=== PATIENT | female | born 1935 | race African-American/Black ===

== ENCOUNTER 2017-02-05 12:02 | Inpatient (IN) | payer OTHER ==
[~2017-02-05] VITALS: Ht 167.6 cm; Wt 106.1 kg
[~2017-02-05 12:02] MED LIST: AMARYL4 MG PO; AMLODIPINE BESY10 M1 PO; BISCOLAX5 MG PO; CARVEDILOL6.25 M1 PO; CLONIDINE HCL0.2 MG PO; COLACE100 MG PO; FLUTICASON0.05 MG/Ac; HCTZ/LISINOPRIL1 TA2 PO; HYDROCHLOROTHIA25 MG PO; LOSARTAN POTASS25 M1 PO; MOTRIN800 MG PO; NAPROSYN250 MG PO; OLANZAPINE10 MG PO; ONGLYZA5 M1 PO; SEROQUEL25 MG PO; SIMVASTATIN40 M1 PO
[2017-02-05 12:43] LABS: PLATELET COUNT 245 x10^3mcL (130-400); RED CELL DISTRIBUTION WIDTH 15.6 % (11.5-14.5)
[2017-02-05 12:44] LABS: CALCIUM 9.6 mg/dL (8.5-10.1); CHLORIDE SERUM 105 mmol/L (98-107); CREATININE SERUM 1.4 mg/dL (0.6-1.0); GLUCOSE SERUM 155 mg/dL (74-106); POTASSIUM SERUM 4.3 mmol/L (3.5-5.1); SODIUM SERUM 139 mmol/L (136-145)
[2017-02-05 12:47] LABS: BAND NEUTROPHIL 1 % (0-10); BASOPHIL 0 % (0-2); MONOCYTE 6 % (0-7); SEGMENTED NEUTROPHILS 65 % (37-75)
[2017-02-05 12:49] LABS: ALBUMIN 3.8 g/dL (3.4-5.0); ALKALINE PHOSPHATASE 58 U/L (46-116); ALT/SGPT 8 U/L (14-59); AST/SGOT 19 U/L (15-37); BILIRUBIN TOTAL 0.61 mg/dL (0.20-1.00); PLATELET MORPHOLOGY PLATELETS NORMAL; TOTAL PROTEIN, SERUM 7.9 g/dL (6.4-8.2); rbc morphology (normal/abnorm) ABNORMAL (NORMAL)
[2017-02-05 15:20] LABS: CHOLESTEROL/HDL RATIO 3.9
[2017-02-05 15:25] LABS: T3 TOTAL 0.71 ng/mL
[2017-02-05 15:29] LABS: FREE THYROXINE INDEX 2.3 ug/dL (1.4-4.5); T4(THYROXINE) 6.9 ug/dL (4.7-13.3)
[2017-02-05 15:51] VITALS: BP 193/101
[2017-02-05 16:18] VITALS: BP 169/88
[2017-02-05 17:16] VITALS: BP 180/78
[2017-02-05 17:22] LABS: microscopic required? NO
[2017-02-05 17:31] LABS: urine erythrocyte NEGATIVE (NEGATIVE)
[2017-02-05 19:14] VITALS: BP 136/67
[2017-02-05 21:44] VITALS: BP 128/63
[2017-02-06 07:01] VITALS: BP 163/77
[2017-02-06 07:09] LABS: BASOPHIL % 0.5 % (0-2); PLATELET COUNT 234 x10^3mcL (130-400)
[2017-02-06 07:14] LABS: RED CELL DISTRIBUTION WIDTH 15.4 % (11.5-14.5)
[2017-02-06 07:16] LABS: CALCIUM 9.5 mg/dL (8.5-10.1); CHLORIDE SERUM 107 mmol/L (98-107); CREATININE SERUM 1.1 mg/dL (0.6-1.0); GLUCOSE SERUM 130 mg/dL (74-106); MAGNESIUM 2.4 mg/dL (1.8-2.4); PHOSPHOROUS 3.2 mg/dL (2.5-4.9); POTASSIUM SERUM 4.6 mmol/L (3.5-5.1); SODIUM SERUM 145 mmol/L (136-145)
[2017-02-06 09:30] VITALS: BP 122/70
[2017-02-06 13:35] VITALS: BP 155/74
[2017-02-06 18:00] VITALS: BP 155/81
[2017-02-07 01:47] VITALS: BP 151/52
[2017-02-07 06:13] LABS: BASOPHIL % 0.5 % (0-2); PLATELET COUNT 240 x10^3mcL (130-400)
[2017-02-07 06:35] LABS: CALCIUM 9.7 mg/dL (8.5-10.1); CARBON DIOXIDE 27.4 mmol/L (21-32); CHLORIDE SERUM 109 mmol/L (98-107); CREATININE SERUM 1.1 mg/dL (0.6-1.0); GLUCOSE SERUM 147 mg/dL (74-106); MAGNESIUM 2.3 mg/dL (1.8-2.4); PHOSPHOROUS 3.3 mg/dL (2.5-4.9); POTASSIUM SERUM 4.3 mmol/L (3.5-5.1); SODIUM SERUM 141 mmol/L (136-145)
[2017-02-07 06:36] LABS: RED CELL DISTRIBUTION WIDTH 15.9 % (11.5-14.5)
[2017-02-07 08:25] VITALS: BP 178/75
[2017-02-07 11:06] VITALS: BP 158/67
[2017-02-07 14:07] VITALS: BP 166/69
[2017-02-07 19:30] VITALS: BP 169/71
[2017-02-08 05:50] VITALS: BP 154/82
[2017-02-08 05:57] LABS: BASOPHIL % 0.3 % (0-2); PLATELET COUNT 229 x10^3mcL (130-400)
[2017-02-08 06:17] LABS: CALCIUM 9.6 mg/dL (8.5-10.1); CARBON DIOXIDE 26.8 mmol/L (21-32); CHLORIDE SERUM 109 mmol/L (98-107); GLUCOSE SERUM 124 mg/dL (74-106); MAGNESIUM 2.1 mg/dL (1.8-2.4); PHOSPHOROUS 3.4 mg/dL (2.5-4.9); POTASSIUM SERUM 4.2 mmol/L (3.5-5.1); SODIUM SERUM 143 mmol/L (136-145)
[2017-02-08 06:34] LABS: RED CELL DISTRIBUTION WIDTH 15.5 % (11.5-14.5)
[2017-02-08 10:42] VITALS: BP 160/71
[2017-02-08] MEDS ORDERED: GLU500 PO (14:07)
[2017-02-08 14:09] VITALS: BP 145/67; BP 145/76
[2017-02-08] MEDS ORDERED: ECO81 PO (14:10)
[2017-02-08 14:32] VITALS: BP 145/76
[2017-02-08] MEDS ORDERED: COZ50 PO (15:12)
[2017-02-08] MEDS ORDERED: NOR10 PO (16:13)
[2017-02-08] MEDS ORDERED: SEROQUEL25 MG PO (16:21)
== END 2017-02-08 17:25 | disposition home health service (06) | DRG 640 ==
LOC: ED 12:02 → DU 13:33 → MU 02-08 07:00
PROVIDERS: Emergency Medicine; Family Medicine; ADMIT Family Medicine
DX: E86.0 Dehydration (principal); N17.0 Acute kidney failure with tubular necrosis; D68.69 Other thrombophilia; E11.65 Type 2 diabetes mellitus with hyperglycemia; I16.0 Hypertensive urgency; E78.5 Hyperlipidemia, unspecified; E02 Subclinical iodine-deficiency hypothyroidism; D64.9 Anemia, unspecified; M19.90 Unspecified osteoarthritis, unspecified site; Z68.37 Body mass index [BMI] 37.0-37.9, adult
CPT/HCPCS: 82962; 83880; 84439; 97110-GP; 97116-GP; 97530-GP; J3490; J7030; J7040; Q0092

== ENCOUNTER 2017-03-17 11:53 | Emergency (ER) | payer OTHER ==
[~2017-03-17 11:53] MED LIST changes: +COZ50 PO; +ECO81 PO; +GLU500 PO; +NOR10 PO
[2017-03-17 12:51] LABS: BASOPHIL % 0.3 % (0-2); PLATELET COUNT 288 x10^3mcL (130-400)
[2017-03-17 12:54] LABS: RED CELL DISTRIBUTION WIDTH 15.8 % (11.5-14.5)
[2017-03-17 12:58] LABS: CALCIUM 9.5 mg/dL (8.5-10.1); CARBON DIOXIDE 26.8 mmol/L (21-32); CHLORIDE SERUM 107 mmol/L (98-107); CREATININE SERUM 1.6 mg/dL (0.6-1.0); GLUCOSE SERUM 145 mg/dL (74-106); POTASSIUM SERUM 4.1 mmol/L (3.5-5.1); SODIUM SERUM 143 mmol/L (136-145)
[2017-03-17 13:03] LABS: ALBUMIN 3.6 g/dL (3.4-5.0); ALKALINE PHOSPHATASE 60 U/L (46-116); ALT/SGPT 13 U/L (14-59); AST/SGOT 15 U/L (15-37); BILIRUBIN TOTAL 0.6 mg/dL (0.20-1.00); MAGNESIUM 2.2 mg/dL (1.8-2.4); TOTAL PROTEIN, SERUM 7.3 g/dL (6.4-8.2)
[2017-03-17 13:41] VITALS: BP 127/63
== END 2017-03-17 14:06 | disposition home or self-care (01) ==
LOC: ED 11:53
PROVIDERS: Emergency Medicine
DX: E86.0 Dehydration (principal); I10 Essential (primary) hypertension; D64.9 Anemia, unspecified; E11.9 Type 2 diabetes mellitus without complications; E78.5 Hyperlipidemia, unspecified; Z91.013 Allergy to seafood; Z88.5 Allergy status to narcotic agent; Z88.8 Allergy status to other drugs, medicaments and biological substances
CPT/HCPCS: J7030; Q0092

== ENCOUNTER 2017-06-14 12:22 | Inpatient (IN) | payer OTHER ==
[~2017-06-14] VITALS: Ht 165.1 cm; Wt 99.0 kg
[2017-06-14 13:17] LABS: BASOPHIL % 0.3 % (0-2); PLATELET COUNT 353 x10^3mcL (130-400)
[2017-06-14 13:18] LABS: RED CELL DISTRIBUTION WIDTH 14.9 % (11.5-14.5)
[2017-06-14 13:39] LABS: ALBUMIN 3.8 g/dL (3.4-5.0); ALKALINE PHOSPHATASE 62 U/L (46-116); ALT/SGPT 18 U/L (14-59); AST/SGOT 28 U/L (15-37); BILIRUBIN TOTAL 0.8 mg/dL (0.20-1.00); CALCIUM 9.2 mg/dL (8.5-10.1); CARBON DIOXIDE 25.1 mmol/L (21-32); CHLORIDE SERUM 85 mmol/L (98-107); CREATININE SERUM 1.2 mg/dL (0.6-1.0); GLUCOSE SERUM 209 mg/dL (74-106); POTASSIUM SERUM 4.3 mmol/L (3.5-5.1); TOTAL PROTEIN, SERUM 7.2 g/dL (6.4-8.2)
[2017-06-14 13:52] LABS: SODIUM SERUM 120 mmol/L (136-145)
[2017-06-14 15:24] VITALS: BP 157/90
[2017-06-14 15:29] LABS: MAGNESIUM 1.8 mg/dL (1.8-2.4); PHOSPHOROUS 3.1 mg/dL (2.5-4.9)
[2017-06-14 15:31] LABS: CHOLESTEROL/HDL RATIO 2.9
[2017-06-14 15:33] LABS: T3 TOTAL 0.86 ng/mL
[2017-06-14 15:34] LABS: FREE T4 1.22 ng/dL (0.76-1.46); FREE THYROXINE INDEX 3.3 ug/dL (1.4-4.5); T4(THYROXINE) 9.5 ug/dL (4.7-13.3)
[2017-06-14 21:24] VITALS: BP 102/80
[2017-06-14 22:00] LABS: microscopic required? NO
[2017-06-14 22:07] LABS: urine erythrocyte NEGATIVE (NEGATIVE)
[2017-06-15 05:59] VITALS: BP 155/67
[2017-06-15 09:32] VITALS: BP 106/45
[2017-06-15 13:05] LABS: CALCIUM 8.5 mg/dL (8.5-10.1); CARBON DIOXIDE 25.4 mmol/L (21-32); CHLORIDE SERUM 94 mmol/L (98-107); CREATININE SERUM 1.1 mg/dL (0.6-1.0); GLUCOSE SERUM 126 mg/dL (74-106); POTASSIUM SERUM 4.3 mmol/L (3.5-5.1); SODIUM SERUM 125 mmol/L (136-145)
[2017-06-15 13:06] LABS: BASOPHIL % 0.5 % (0-2); PLATELET COUNT 281 x10^3mcL (130-400)
[2017-06-15 13:11] LABS: RED CELL DISTRIBUTION WIDTH 14.9 % (11.5-14.5)
[2017-06-15 14:10] VITALS: BP 101/56
[2017-06-15 14:15] VITALS: Ht 165.1 cm; Wt 99.0 kg
[2017-06-15 17:24] VITALS: BP 108/57
[2017-06-15 17:34] LABS: RED BLOOD CELLS 2.56 M/mm3 (4.10-5.10)
[2017-06-15 17:39] LABS: IRON 30 ug/dL (50-170); TOTAL IRON BINDING CAPACITY 218 ug/dL (250-450)
[2017-06-15 20:58] VITALS: BP 140/53
[2017-06-16 05:40] VITALS: BP 100/49
[2017-06-16 06:47] LABS: CALCIUM 8.6 mg/dL (8.5-10.1); CHLORIDE SERUM 99 mmol/L (98-107); GLUCOSE SERUM 116 mg/dL (74-106); SODIUM SERUM 130 mmol/L (136-145)
[2017-06-16 10:15] VITALS: BP 141/67
[2017-06-16 14:38] VITALS: BP 134/65
[2017-06-16 17:23] VITALS: BP 143/62
[2017-06-16 21:37] VITALS: BP 139/56
[2017-06-17] VITALS (9 sets, daily range): BP systolic 124–186; BP diastolic 63–75
[2017-06-17 07:33] LABS: BASOPHIL % 0.2 % (0-2); CALCIUM 8.8 mg/dL (8.5-10.1); CHLORIDE SERUM 101 mmol/L (98-107); GLUCOSE SERUM 121 mg/dL (74-106); PLATELET COUNT 324 x10^3mcL (130-400); SODIUM SERUM 135 mmol/L (136-145)
[2017-06-17 07:44] LABS: RED CELL DISTRIBUTION WIDTH 15.1 % (11.5-14.5)
[2017-06-18 05:30] VITALS: BP 155/59
[2017-06-18 07:16] LABS: CALCIUM 8.7 mg/dL (8.5-10.1); CARBON DIOXIDE 23.6 mmol/L (21-32); CHLORIDE SERUM 103 mmol/L (98-107); GLUCOSE SERUM 126 mg/dL (74-106); POTASSIUM SERUM 4.2 mmol/L (3.5-5.1); SODIUM SERUM 136 mmol/L (136-145)
[2017-06-18 08:40] LABS: BASOPHIL % 0.3 % (0-2); PLATELET COUNT 340 x10^3mcL (130-400); RED CELL DISTRIBUTION WIDTH 15.3 % (11.5-14.5)
[2017-06-18 09:00] VITALS: BP 151/65
[2017-06-18 10:00] VITALS: BP 135/69
[2017-06-18 12:09] VITALS: BP 150/64
[2017-06-18 18:20] VITALS: BP 110/54
[2017-06-18 20:50] VITALS: BP 124/52
[2017-06-19 05:42] VITALS: BP 124/44
[2017-06-19 08:00] VITALS: BP 121/52
[2017-06-19 10:30] LABS: BASOPHIL % 0.3 % (0-2); PLATELET COUNT 397 x10^3mcL (130-400); RED CELL DISTRIBUTION WIDTH 15.4 % (11.5-14.5)
[2017-06-19 10:42] LABS: CALCIUM 8.8 mg/dL (8.5-10.1); CARBON DIOXIDE 27.3 mmol/L (21-32); CHLORIDE SERUM 106 mmol/L (98-107); GLUCOSE SERUM 153 mg/dL (74-106); MAGNESIUM 1.9 mg/dL (1.8-2.4); PHOSPHOROUS 2.5 mg/dL (2.5-4.9); POTASSIUM SERUM 4.2 mmol/L (3.5-5.1); SODIUM SERUM 139 mmol/L (136-145)
[2017-06-19 11:00] LABS: rbc morphology (normal/abnorm) ABNORMAL (NORMAL)
[2017-06-19 18:15] VITALS: BP 127/61
[2017-06-19 20:43] VITALS: BP 130/48
[2017-06-20 05:56] VITALS: BP 160/63
[2017-06-20 06:46] LABS: CALCIUM 8.8 mg/dL (8.5-10.1); CARBON DIOXIDE 26.9 mmol/L (21-32); CHLORIDE SERUM 106 mmol/L (98-107); CREATININE SERUM 0.9 mg/dL (0.6-1.0); GLUCOSE SERUM 132 mg/dL (74-106); POTASSIUM SERUM 4.1 mmol/L (3.5-5.1); SODIUM SERUM 138 mmol/L (136-145)
[2017-06-20 06:48] LABS: ALBUMIN 2.2 g/dL (3.4-5.0)
[2017-06-20 07:10] VITALS: BP 143/63
[2017-06-20 07:12] LABS: BASOPHIL % 0.2 % (0-2); PLATELET COUNT 375 x10^3mcL (130-400)
[2017-06-20 07:43] LABS: rbc morphology (normal/abnorm) ABNORMAL (NORMAL)
[2017-06-20 07:44] LABS: schistocyte (helmet cell) 1+
[2017-06-20 18:00] VITALS: BP 170/64
[2017-06-20 21:18] VITALS: BP 184/70
[2017-06-20 22:23] VITALS: BP 157/75
[2017-06-21 06:08] VITALS: BP 166/68
[2017-06-21 06:21] LABS: CALCIUM 8.9 mg/dL (8.5-10.1); CARBON DIOXIDE 24.9 mmol/L (21-32); CHLORIDE SERUM 106 mmol/L (98-107); CREATININE SERUM 0.8 mg/dL (0.6-1.0); GLUCOSE SERUM 144 mg/dL (74-106); SODIUM SERUM 139 mmol/L (136-145)
[2017-06-21 07:22] LABS: BASOPHIL % 0 % (0-2); PLATELET COUNT 437 x10^3mcL (130-400); RED CELL DISTRIBUTION WIDTH 15.2 % (11.5-14.5)
[2017-06-21 07:27] LABS: rbc morphology (normal/abnorm) ABNORMAL (NORMAL)
[2017-06-21 07:29] LABS: schistocyte (helmet cell) 1+
[2017-06-21 10:12] VITALS: BP 162/67
[2017-06-21 13:21] VITALS: BP 162/67
[2017-06-21 17:43] VITALS: BP 146/63
== END 2017-06-21 20:20 | DRG 481 ==
LOC: ED 12:22 → DU 14:27 → MU 14:27 → DU 15:08 → MU 06-18 06:36
PROVIDERS: Emergency Medicine; Family Medicine; Neuromusculoskeletal Medicine, Sports Medicine; ADMIT Family Medicine
PROC: 0QS804Z Reposition Right Femoral Shaft with Internal Fixation Device, Open Approach (ICD-10-PCS; principal; 2017-06-17 11:00)
DX: S72.341A Displaced spiral fracture of shaft of right femur, initial encounter for closed fracture (principal); E87.1 Hypo-osmolality and hyponatremia; D68.69 Other thrombophilia; E11.65 Type 2 diabetes mellitus with hyperglycemia; M17.11 Unilateral primary osteoarthritis, right knee; M16.11 Unilateral primary osteoarthritis, right hip; D64.9 Anemia, unspecified; E78.00 Pure hypercholesterolemia, unspecified; E87.8 Other disorders of electrolyte and fluid balance, not elsewhere classified; E02 Subclinical iodine-deficiency hypothyroidism; W17.89XA Other fall from one level to another, initial encounter; Y93.89 Activity, other specified; Z79.82 Long term (current) use of aspirin; Z68.36 Body mass index [BMI] 36.0-36.9, adult; Y92.013 Bedroom of single-family (private) house as the place of occurrence of the external cause
CPT/HCPCS: 82962; 83880; 84439; 97110-GP; 97530-GP; C1713; J0690; J1644; J1815; J2270; J2405; J2704; J2916; J3010; J3490; J7030; J7040

== ENCOUNTER 2019-01-22 12:18 | Emergency (ER) | payer OTHER ==
[~2019-01-22] VITALS: Ht 167.6 cm; Wt 72.6 kg
[2019-01-22 12:30] VITALS: Ht 167.6 cm; Wt 72.6 kg
[2019-01-22 13:29] LABS: BASOPHIL % 0.3 % (0-2); PLATELET COUNT 240 x10^3mcL (130-400)
[2019-01-22 13:31] LABS: CALCIUM 9.2 mg/dL (8.5-10.1); CARBON DIOXIDE 28.4 mmol/L (21-32); CHLORIDE SERUM 103 mmol/L (98-107); CREATININE SERUM 1.2 mg/dL (0.6-1.0); GLUCOSE SERUM 123 mg/dL (74-106); POTASSIUM SERUM 4.5 mmol/L (3.5-5.1); SODIUM SERUM 137 mmol/L (136-145)
[2019-01-22 13:34] LABS: RED CELL DISTRIBUTION WIDTH 15.8 % (11.5-14.5)
[2019-01-22 13:36] LABS: ALKALINE PHOSPHATASE 60 U/L (46-116); ALT/SGPT 37 U/L (14-59); AST/SGOT 34 U/L (15-37); BILIRUBIN TOTAL 0.54 mg/dL (0.20-1.00)
[2019-01-22 13:37] LABS: ALBUMIN 3.2 g/dL (3.4-5.0)
[2019-01-22 14:26] LABS: UA SPECIFIC GRAVITY 1.015 (1.005-1.035); microscopic required? YES
[2019-01-22 14:28] LABS: urine erythrocyte 1+ (NEGATIVE)
[2019-01-22 18:12] VITALS: BP 124/57
== END 2019-01-22 18:12 | disposition home or self-care (01) ==
LOC: ED 12:18
PROVIDERS: Emergency Medicine
DX: N39.0 Urinary tract infection, site not specified (principal); E86.0 Dehydration; I10 Essential (primary) hypertension; Z91.013 Allergy to seafood; Z88.5 Allergy status to narcotic agent; Z91.041 Radiographic dye allergy status
CPT/HCPCS: J0696; J7030

== ENCOUNTER 2019-07-24 14:49 | Emergency (ER) | payer OTHER ==
[~2019-07-24] VITALS: Ht 170.2 cm; Wt 86.2 kg
[2019-07-24 17:04] LABS: PLATELET COUNT 343 x10^3mcL (130-400); RED CELL DISTRIBUTION WIDTH 14.1 % (11.5-14.5)
[2019-07-24 17:33] LABS: BAND NEUTROPHIL 0 % (0-10); BASOPHIL 0 % (0-2); MONOCYTE 7 % (0-7); SEGMENTED NEUTROPHILS 69 % (37-75)
[2019-07-24 17:34] LABS: PLATELET MORPHOLOGY PLATELETS NORMAL; rbc morphology (normal/abnorm) NORMAL (NORMAL)
[2019-07-24 17:34] LABS: CALCIUM 9.5 mg/dL (8.5-10.1); CARBON DIOXIDE 26.2 mmol/L (21-32); CHLORIDE SERUM 102 mmol/L (98-107); CREATININE SERUM 1.3 mg/dL (0.6-1.0); GLUCOSE SERUM 120 mg/dL (74-106); POTASSIUM SERUM 4.4 mmol/L (3.5-5.1); SODIUM SERUM 140 mmol/L (136-145)
[2019-07-24 17:39] LABS: ALBUMIN 3.8 g/dL (3.4-5.0); ALKALINE PHOSPHATASE 43 U/L (46-116); ALT/SGPT 22 U/L (14-59); AST/SGOT 23 U/L (15-37); BILIRUBIN TOTAL 0.45 mg/dL (0.20-1.00); LIPASE 60 IU/L (73-393); TOTAL PROTEIN, SERUM 8.5 g/dL (6.4-8.2)
[2019-07-24 18:18] VITALS: BP 110/61
== END 2019-07-24 18:36 | disposition home or self-care (01) ==
LOC: ED 14:49
PROVIDERS: Emergency Medicine
DX: K59.00 Constipation, unspecified (principal); I10 Essential (primary) hypertension; Z88.8 Allergy status to other drugs, medicaments and biological substances; Z88.5 Allergy status to narcotic agent; Z91.013 Allergy to seafood
CPT/HCPCS: 36415

== ENCOUNTER 2019-10-18 16:53 | Emergency (ER) | payer OTHER ==
[~2019-10-18] VITALS: Ht 167.6 cm; Wt 79.4 kg
[2019-10-18 17:04] VITALS: Ht 167.6 cm; Wt 79.4 kg
[2019-10-18 18:06] LABS: BASOPHIL % 0.9 % (0-2)
[2019-10-18 18:07] LABS: PLATELET COUNT 429 x10^3mcL (130-400); RED CELL DISTRIBUTION WIDTH 16.4 % (11.5-14.5)
[2019-10-18 18:20] LABS: CALCIUM 8.9 mg/dL (8.5-10.1); CARBON DIOXIDE 25.8 mmol/L (21-32); CHLORIDE SERUM 99 mmol/L (98-107); CREATININE SERUM 1.4 mg/dL (0.6-1.0); GLUCOSE SERUM 169 mg/dL (74-106); POTASSIUM SERUM 4.4 mmol/L (3.5-5.1); SODIUM SERUM 134 mmol/L (136-145)
[2019-10-18 18:25] LABS: ALBUMIN 2.9 g/dL (3.4-5.0); ALKALINE PHOSPHATASE 63 U/L (46-116); ALT/SGPT 26 U/L (14-59); AST/SGOT 20 U/L (15-37); BILIRUBIN TOTAL 0.54 mg/dL (0.20-1.00); TOTAL PROTEIN, SERUM 8.1 g/dL (6.4-8.2)
[2019-10-18 19:45] LABS: microscopic required? YES; urine erythrocyte 2+ (NEGATIVE)
[2019-10-18 21:23] VITALS: BP 132/46
== END 2019-10-18 21:23 | disposition home or self-care (01) ==
LOC: ED 16:53
PROVIDERS: Emergency Medicine
DX: A41.9 Sepsis, unspecified organism (principal); N39.0 Urinary tract infection, site not specified; R50.9 Fever, unspecified; E86.0 Dehydration; I10 Essential (primary) hypertension; Z88.5 Allergy status to narcotic agent; Z91.013 Allergy to seafood; Z88.8 Allergy status to other drugs, medicaments and biological substances
CPT/HCPCS: 87804; J0696; J7030; J7060; Q0092